=== PATIENT | female | born 1950 | race Two or more races ===

== ENCOUNTER 2016-11-03 09:57 | Inpatient (IN) | payer MEDICAID ==
--- NOTE | 2016-11-03 10:19 | EDPHY ---
H & P Time Seen by Provider: 11/03/16 10:12 HPI/ROS: CHIEF COMPLAINT: Abdominal pain HISTORY OF PRESENT ILLNESS: Patient started having symptoms at 5:00 a.m. today. Describes abdominal pain in the epigastric area radiating to both sides not affected by drinking hot water which was the only thing she had today. Not better worse with oral intake. Moderate pain. No known vomiting or nausea or diarrhea. Denies chest pain or shortness of breath. No recent fall injury or trauma. REVIEW OF SYSTEMS: Eye: no change in vision ENT: no sore throat Cardiac: no chest pain or syncope Pulmonary: no cough or SOB Abdomen: HPI Musculoskeletal: no back pain Skin: no rash Neuro: no headache Constitutional: no fever : no urinary symptoms A comprehensive 10 point review of systems is otherwise negative aside from elements mentioned in the history of present illness. PAST MEDICAL HISTORY: No previous abdominal surgeries, previous eye surgery Social history: no alcohol, primarily speaks Yi, history through phone air box tester, returning to [facility] on Monday. General Appearance: Alert and conversant, cooperative. Eyes: No scleral icterus. ENT, Mouth: Normal mucous membranes. Respiratory: Normal respiratory effort, breath sounds equal, lungs are clear to auscultation. Cardiovascular: Regular rate and rhythm. Gastrointestinal: Abdomen is soft and non tender. No Johnson sign, no rebound or guarding. Neurological: Alert and oriented x3. Normally conversant. Face symmetric, normal movement and sensation in all extremities. Skin: Warm and dry, no rashes. Musculoskeletal: No peripheral edema and no joint swelling. Psychiatric: Not agitated. Emergency Department course/MDM: Labs to include lipase LFTs and CBC, GI cocktail, EKG. 1220: Long discussion with the patient and through the Yi air box tester about diagnosis and need for admission, ultrasound in the room at this time. Admission for evaluation of pancreatitis. Smoking Status: Never smoked Constitutional: Initial Vital Signs Temperature (C) 36.4 C 11/03/16 10:00 Heart Rate 63 11/03/16 10:00 Respiratory Rate 16 11/03/16 10:00 Blood Pressure 153/92 H 11/03/16 10:00 O2 Sat (%) 100 11/03/16 10:00 O2 Delivery Mode Room Air Allergies/Adverse Reactions: No Known Allergies Allergy (Verified 11/03/16 10:03) Home Medications: Medication Instructions Recorded No Medications [No Meds] 1 [place] [facility] [place] Medical Decision Making - Diagnostics EKG Interpretation: 12-lead EKG interpreted by me; official reading is in trace master. My interpretation is sinus rhythm rate 63 no acute ischemic changes Imaging Results: Imaging Impressions Abdomen Ultrasound 11/03/16 12:16 Impression:1. Cholelithiasis. The gallbladder is contracted so it is impossible to evaluate the gallbladder wall. 2. Intra and extrahepatic biliary dilatation with a dilated common duct and pancreatic duct. Recommend CT to exclude pancreatic head mass and/or MRCP with MRI abdomen to evaluate for choledocholithiasis or other cause for dilated ducts. 3. No evidence for complicated pancreatitis. Differential Diagnosis: Differential diagnosis considered for abdominal pain including but not limited to pancreatitis, cholecystitis, bowel obstruction, gastritis and heart disease. Consult/Admit Bed Type: [place] [id number] for [facility] - Data Points Laboratory Results: Laboratory Results 11/03/16 11:55 11/03/16 11:25 11/03/16 11/03/16 11/03/16 11:55 11:25 11:25 WBC 9.40 10^3/uL 10^3/uL REJ (3.80-9.50) RBC 5.43 10^6/uL H 10^6/uL TNP (4.18-5.33) Hgb 13.7 g/dL g/dL TNP (12.6-16.3) Hct 41.3 % % TNP (38.0-47.0) MCV 76.1 fL L fL TNP (81.5-99.8) MCH 25.2 pg L pg TNP (27.9-34.1) MCHC 33.2 g/dL g/dL TNP (32.4-36.7) RDW 14.2 % % TNP (11.5-15.2) Plt Count 198 10^3/uL 10^3/uL TNP (150-400) MPV 12.0 fL H fL TNP (8.7-11.7) Neut % (Auto) 64.0 % % TNP (39.3-74.2) Lymph % (Auto) 27.1 % % TNP (15.0-45.0) Woods % (Auto) 6.6 % % TNP (4.5-13.0) Eos % (Auto) 1.6 % % TNP (0.6-7.6) Baso % (Auto) 0.3 % % TNP (0.3-1.7) Nucleat RBC Rel Count 0.0 % % TNP (0.0-0.2) Absolute Neuts (auto) 6.01 10^3/uL 10^3/uL TNP (1.70-6.50) Absolute Lymphs (auto) 2.55 10^3/uL 10^3/uL TNP (1.00-3.00) Absolute Monos (auto) 0.62 10^3/uL 10^3/uL TNP (0.30-0.80) Absolute Eos (auto) 0.15 10^3/uL 10^3/uL TNP (0.03-0.40) Absolute Basos (auto) 0.03 10^3/uL 10^3/uL TNP (0.02-0.10) Absolute Nucleated RBC 0.00 10^3/uL 10^3/uL TNP (0-0.01) Immature Gran % 0.4 % % TNP (0.0-1.1) Immature Gran # 0.04 10^3/uL 10^3/uL TNP (0.00-0.10) Sodium 139 mEq/L mEq/L (134-144) Potassium 4.7 mEq/L mEq/L (3.5-5.2) Chloride 109 mEq/L mEq/L (97-110) Carbon Dioxide 22 mEq/l mEq/l (22-31) Anion Gap 8 mEq/L mEq/L (8-16) BUN 15 mg/dL mg/dL (7-23) Creatinine 0.7 mg/dL mg/dL (0.6-1.0) Estimated GFR > 60 Glucose 84 mg/dL mg/dL (70-100) Calcium 9.8 mg/dL mg/dL (8.5-10.4) Total Bilirubin 1.7 mg/dL H mg/dL (0.1-1.4) Conjugated Bilirubin 1.1 mg/dL H mg/dL (0.0-0.5) Unconjugated Bilirubin 0.6 mg/dL mg/dL (0.0-1.1) AST 416 IU/L H IU/L (14-46) ALT 297 IU/L H IU/L (9-52) Alkaline Phosphatase 102 IU/L IU/L (38-126) Total Protein 8.0 g/dL g/dL (6.3-8.2) Albumin 4.5 g/dL g/dL (3.5-5.0) Lipase 1302.0 IU/L H IU/L (23-300) Medications Given: Discontinued Medications Al Hydroxide/Mg Hydroxide (Maalox Susp) 30 ml PO ONCE ONE Stop: 11/03/16 10:29 Last Admin: 11/03/16 10:40 Dose: 30 ml Hydromorphone HCl (Dilaudid) 0.5 mg IVP EDNOW ONE Stop: 11/03/16 13:20 Last Admin: 11/03/16 13:25 Dose: 0.5 mg Hyoscyamine Sulfate (Levsin, Hyomax-Sl) 0.25 mg PO ONCE ONE Stop: 11/03/16 10:29 Last Admin: 11/03/16 10:40 Dose: 0.25 mg Sodium Chloride (Ns) 1,000 mls @ 0 mls/hr IV ONCE ONE PRN Reason: Wide Open Stop: 11/03/16 10:29 Last Admin: 11/03/16 10:40 Dose: 1,000 mls Sodium Chloride (Ns) 1,000 mls @ 0 mls/hr IV ONCE ONE PRN Reason: Wide Open Stop: 11/03/16 12:16 Last Admin: 11/03/16 12:48 Dose: 1,000 mls Lidocaine (Lidocaine 2% Viscous) 15 ml PO ONCE ONE Stop: 11/03/16 10:29 Last Admin: 11/03/16 10:40 Dose: 15 ml Departure - Departure Disposition: [facility] Inpatient Acute Clinical Impression: Acute pancreatitis Qualifiers: Pancreatitis type: unspecified pancreatitis type Acute pancreatitis complication: unspecified Qualified Code(s): K85.90 - Acute pancreatitis without necrosis or infection, unspecified Condition: Good
[2016-11-03] MEDS ORDERED: NS 1,000 ML IV ONE ×2 (10:28→12:15)
[2016-11-03] MEDS ORDERED: MAG HYDROX/AL HYDROX/SIMETH 30 ML UDCUP PO ONE (10:28)
[2016-11-03] MEDS ORDERED: LIDOCAINE 2% VISCOUS 15 ML UDCUP PO ONE (10:28)
[2016-11-03] MEDS ORDERED: HYOSCYAMINE SULFATE 0.125 MG TAB PO ONE (10:28)
--- NOTE | 2016-11-03 10:37 | CPEKG ---
Heart Rate: 63 RR Interval: 952 P-R Interval: 136 QRSD Interval: 78 QT Interval: 396 QTC Interval: 406 P Canyon: 63 QRS Canyon: 55 T Wave Canyon: 30 EKG Severity - NORMAL ECG - EKG Impression: SINUS RHYTHM Electronically Signed By: Rudi Campbell 03-Nov-2016 11:40:12
[2016-11-03 12:04] LABS: ALANINE AMINOTRANSFERASE 297 IU/L (9-52); ALBUMIN 4.5 g/dL (3.5-5.0); ALKALINE PHOSPHATASE 102 IU/L (38-126); ANION GAP 8 mEq/L (8-16); ASPARTATE AMINOTRANSFERASE 416 IU/L (14-46); BILIRUBIN,TOTAL 1.7 mg/dL (0.1-1.4); BILIRUBIN-CONJUGATED 1.1 mg/dL (0.0-0.5); BILIRUBIN-UNCONJUGATED 0.6 mg/dL (0.0-1.1); CALCIUM 9.8 mg/dL (8.5-10.4); CARBON DIOXIDE 22 mEq/l (22-31); CHLORIDE 109 mEq/L (97-110); CREATININE 0.7 mg/dL (0.6-1.0); GLOMERULAR FILTRATION RATE > 60; GLUCOSE 84 mg/dL (70-100); POTASSIUM 4.7 mEq/L (3.5-5.2); SODIUM 139 mEq/L (134-144)
[2016-11-03 12:15] LABS: % IMMATURE GRANULYOCYTES 0.4 % (0.0-1.1); ABSOLUTE IMMATURE GRANULOCYTES 0.04 10^3/uL (0.00-0.10); ADD DIFF? NO; ADD MORPH? NO; ADD SCAN? NO; ATYPICAL LYMPHOCYTE FLAG 0 (0-99); FRAGMENT RBC FLAG 10 (0-99); HEMATOCRIT 41.3 % (38.0-47.0); HEMOGLOBIN 13.7 g/dL (12.6-16.3); LEFT SHIFT FLG 0 (0-99); LIPEMIA HEMOLYSIS FLAG 80 (0-99); MEAN CELL HEMOGLOBIN 25.2 pg (27.9-34.1); MEAN CELL HEMOGLOBIN CONCENTR. 33.2 g/dL (32.4-36.7); MEAN CELL VOLUME 76.1 fL (81.5-99.8); PLATELET CLUMPS FLAG 10 (0-99); PLATELET COUNT 198 10^3/uL (150-400); RED BLOOD CELL COUNT 5.43 10^6/uL (4.18-5.33); RED CELL DISTRIBUTION WIDTH 14.2 % (11.5-15.2)
[2016-11-03] MEDS ORDERED: HYDROmorphONE/DILAUDID 1 MG/ML SYR ONE (13:17)
[2016-11-03] MEDS ORDERED: HYDROmorphONE/DILAUDID 1 MG/ML SYR IVP ONE (13:19)
[2016-11-03] MEDS ORDERED: ONDANSETRON DISINTEGRATING 4 MG TAB PO PRN (13:38)
[2016-11-03] MEDS ORDERED: PROMETHAZINE HCL 25 MG TAB PO PRN (13:38)
[2016-11-03] MEDS ORDERED: HYDROmorphONE/DILAUDID 1 MG/ML SYR IVP PRN (13:38)
[2016-11-03] MEDS ORDERED: ONDANSETRON 4 MG/2 ML VIAL IVP PRN (13:38)
[2016-11-03] MEDS ORDERED: NICOTINE POLACRILEX 2 MG GUM B PRN (13:38)
--- NOTE | 2016-11-03 13:43 | PDGENHP ---
History and Physical - Chief Complaint Acute abdominal pain - History of Present Illness PCP: None HPI: 66-year-old female presents with acute abdominal pain located in the epigastric area, characterized as radiating bilaterally onset at 5:00 a.m. and duration persistent thereafter. Per patient report, she had otherwise been feeling well on the evening prior to this presentation. She denies any regular discomfort with oral intake of foods prior to this onset. She has had associated anorexia but has not been having any vomiting or diarrhea. Her last bowel movement was on the day prior to this presentation. She has not been drinking alcohol recently. She attempted to drink water to alleviate the symptoms today to no affect. She has received pain medication in the emergency department and this has somewhat alleviated her pain. History Information - Allergies/Home Medication List Allergies/Adverse Reactions: No Known Allergies Allergy (Verified 11/03/16 10:03) Home Medications: No Medications [No Meds] 1 ea [facility] [place] 07/02/12 [Last Taken Unknown] I have personally reviewed and updated: family history, medical history, social history, surgical history - Past Medical History no pertinent PMH Additional medical history: Outside records reviewed including 07/02/2012 emergency department report by Clarissa Garcia, characterizing patient's only recent medical care as suspected URI - Surgical History Additional surgical history: Cataract surgery - Family History Additional family history: No family history of GI malignancy - Social History Smoking Status: Current some day smoker Alcohol Use: Occasionally (Not heavy use per ) Drug Use: None Additional social history: Patient is returning to [facility] next week Review of Systems ROS: 10pt was reviewed & negative except for what was stated in HPI & below Gastrointestinal: Reports: abdominal pain, other (Anorexia) Physical Exam Temp Pulse Resp BP Pulse Ox 36.9 C 74 15 145/89 H 96 11/03/16 13:24 11/03/16 13:24 11/03/16 13:24 11/03/16 13:24 11/03/16 13:24 Constitutional: no apparent distress (Mild amount of distress), uncomfortable, No not in pain (Patient is in pain) Eyes: PERRL, anicteric sclera, EOMI Ears, Nose, Mouth, Throat: moist mucous membranes, hearing normal, ears appear normal, no oral mucosal ulcers Cardiovascular: regular rate and rhythym, no murmur, rub, or gallop, No edema Respiratory: no respiratory distress, no rales or rhonchi, clear to auscultation Gastrointestinal: normoactive bowel sounds, tenderness (Mid epigastric area as well as right upper quadrant), No guarding, No distension Skin: warm, normal color, no rashes or abrasions, other (Not visibly jaundiced) , No mottled Neurologic: AAOx3, No facial droop Psychiatric: interacting appropriately, not anxious, not encephalopathic, thought process linear, other (Although per she is somewhat out of it) Lab Data & Imaging Review 11/03/16 11:55 11/03/16 11:25 WBC 9.40 10^3/uL (3.80-9.50) 11/03/16 11:55 RBC 5.43 10^6/uL (4.18-5.33) H 11/03/16 11:55 Hgb 13.7 g/dL (12.6-16.3) 11/03/16 11:55 Hct 41.3 % (38.0-47.0) 11/03/16 11:55 MCV 76.1 fL (81.5-99.8) L 11/03/16 11:55 MCH 25.2 pg (27.9-34.1) L 11/03/16 11:55 MCHC 33.2 g/dL (32.4-36.7) 11/03/16 11:55 RDW 14.2 % (11.5-15.2) 11/03/16 11:55 Plt Count 198 10^3/uL (150-400) 11/03/16 11:55 MPV 12.0 fL (8.7-11.7) H 11/03/16 11:55 Neut % (Auto) 64.0 % (39.3-74.2) 11/03/16 11:55 Lymph % (Auto) 27.1 % (15.0-45.0) 11/03/16 11:55 [place] % (Auto) 6.6 % (4.5-13.0) 11/03/16 11:55 Eos % (Auto) 1.6 % (0.6-7.6) 11/03/16 11:55 Baso % (Auto) 0.3 % (0.3-1.7) 11/03/16 11:55 Nucleat RBC Rel Count 0.0 % (0.0-0.2) 11/03/16 11:55 Absolute Neuts (auto) 6.01 10^3/uL (1.70-6.50) 11/03/16 11:55 Absolute Lymphs (auto) 2.55 10^3/uL (1.00-3.00) 11/03/16 11:55 Absolute Monos (auto) 0.62 10^3/uL (0.30-0.80) 11/03/16 11:55 Absolute Eos (auto) 0.15 10^3/uL (0.03-0.40) 11/03/16 11:55 Absolute Basos (auto) 0.03 10^3/uL (0.02-0.10) 11/03/16 11:55 Absolute Nucleated RBC 0.00 10^3/uL (0-0.01) 11/03/16 11:55 Immature Gran % 0.4 % (0.0-1.1) 11/03/16 11:55 Immature Gran # 0.04 10^3/uL (0.00-0.10) 11/03/16 11:55 Sodium 139 mEq/L (134-144) 11/03/16 11:25 Potassium 4.7 mEq/L (3.5-5.2) 11/03/16 11:25 Chloride 109 mEq/L (97-110) 11/03/16 11:25 Carbon Dioxide 22 mEq/l (22-31) 11/03/16 11:25 Anion Gap 8 mEq/L (8-16) 11/03/16 11:25 BUN 15 mg/dL (7-23) 11/03/16 11:25 Creatinine 0.7 mg/dL (0.6-1.0) 11/03/16 11:25 Estimated GFR > 60 11/03/16 11:25 Glucose 84 mg/dL (70-100) 11/03/16 11:25 Calcium 9.8 mg/dL (8.5-10.4) 11/03/16 11:25 Total Bilirubin 1.7 mg/dL (0.1-1.4) H 11/03/16 11:25 Conjugated Bilirubin 1.1 mg/dL (0.0-0.5) H 11/03/16 11:25 Unconjugated Bilirubin 0.6 mg/dL (0.0-1.1) 11/03/16 11:25 AST 416 IU/L (14-46) H 11/03/16 11:25 ALT 297 IU/L (9-52) H 11/03/16 11:25 Alkaline Phosphatase 102 IU/L (38-126) 11/03/16 11:25 Total Protein 8.0 g/dL (6.3-8.2) 11/03/16 11:25 Albumin 4.5 g/dL (3.5-5.0) 11/03/16 11:25 Lipase 1302.0 IU/L (23-300) H 11/03/16 11:25 Visualized and Interpreted EKG results: Yes EKG Interpretation: Positive for: other (Normal sinus rhythm) Assessment & Plan Assessment: 66-year-old female presents with acute abdominal pain secondary to acute pancreatitis with transaminitis Plan: 1. Pancreatitis. Acute, new from this provider, further workup indicated. Evidenced by lipase level of 1300, midepigastric tenderness, complicated by transaminitis. -unclear etiology, suspect this is not alcohol induced as the patient does not have regular or excessive use of alcohol per her -given her transaminitis, I suspect there may be a gallstone component -right upper quadrant ultrasound ordered, if equivocal findings or evidence of gallstones without overt obstruction, will order HIDA scan -will hold on ordering autoimmune pancreatitis labs until the above has been further evaluated -NPO with sips and chips, high rate IV fluids, IV pain medications -begin cycling on oral pain medications when patient is amenable to taking p.o. 2. Transaminitis. Acute, most likely related to above, suspect gallstone component, continue to monitor complete metabolic panel and further workup as outlined above 3. Tobacco use disorder. Patient's reports that she smokes several cigarettes daily, nicotine patch ordered Diet. NPO with sips and chips Prophylaxis. Moderate risk patient, Lovenox for Code. Full Disposition. Anticipated discharge is 11/04/2016, pending clinical resolution of conditions as outlined above. If patient continues to experience clinical symptoms of acute pancreatitis rendering her unable to tolerate oral intake and unsafe to advance diet, then she will require ongoing IV fluids and IV pain medications thus necessitating inpatient admission status and she will be upgraded at that time. I have discussed this patient with Argenis Henley, hospitalist provider, she has signed out the patient to me for assessment.
[2016-11-03] MEDS: NS 1,000 ML IV SCH ×2 (15:34→20:08)
[2016-11-03] MEDS: HYDROmorphONE/DILAUDID 2 MG TAB PO PRN (15:34)
[2016-11-03] MEDS: NICOTINE 14 MG/24 HR PATCH TD SCH (15:42)
[2016-11-03] MEDS ORDERED: PNEUMOC 13-VAL CONJ-DIP CRM/PF 0.5 ML SYR IM ONE (17:52)
[2016-11-03] MEDS ORDERED: GADOBUTROL 10 ML VIAL IVP ONE (19:54)
[2016-11-04] MEDS: NS 1,000 ML IV SCH ×2 (03:10→08:32)
[2016-11-04 05:50] LABS: % IMMATURE GRANULYOCYTES 0.4 % (0.0-1.1); ABSOLUTE IMMATURE GRANULOCYTES 0.03 10^3/uL (0.00-0.10); ADD DIFF? NO; ADD MORPH? NO; ADD SCAN? NO; ATYPICAL LYMPHOCYTE FLAG 0 (0-99); FRAGMENT RBC FLAG 0 (0-99); HEMATOCRIT 36.2 % (38.0-47.0); HEMOGLOBIN 11.8 g/dL (12.6-16.3); LEFT SHIFT FLG 0 (0-99); LIPEMIA HEMOLYSIS FLAG 80 (0-99); MEAN CELL HEMOGLOBIN 25.1 pg (27.9-34.1); MEAN CELL HEMOGLOBIN CONCENTR. 32.6 g/dL (32.4-36.7); MEAN PLATELET VOLUME 12.7 fL (8.7-11.7); PLATELET CLUMPS FLAG 0 (0-99); PLATELET COUNT 167 10^3/uL (150-400); RED CELL DISTRIBUTION WIDTH 14.2 % (11.5-15.2)
[2016-11-04 06:08] LABS: ALANINE AMINOTRANSFERASE 325 IU/L (9-52); ALKALINE PHOSPHATASE 118 IU/L (38-126); ANION GAP 7 mEq/L (8-16); ASPARTATE AMINOTRANSFERASE 235 IU/L (14-46); BILIRUBIN,TOTAL 1.5 mg/dL (0.1-1.4); CALCIUM 8.1 mg/dL (8.5-10.4); CARBON DIOXIDE 18 mEq/l (22-31); CHLORIDE 118 mEq/L (97-110); CREATININE 0.7 mg/dL (0.6-1.0); GLOMERULAR FILTRATION RATE > 60; GLUCOSE 62 mg/dL (70-100); POTASSIUM 4.1 mEq/L (3.5-5.2); SODIUM 143 mEq/L (134-144); TOTAL PROTEIN 5.6 g/dL (6.3-8.2)
[2016-11-04] MEDS: NICOTINE 14 MG/24 HR PATCH TD SCH (11:41)
[2016-11-04] MEDS: ENOXAPARIN 40 MG/0.4 ML SYR SC SCH (11:45)
--- NOTE | 2016-11-04 13:19 | GCON ---
[f rep st] CONSULTATION GI CONSULTATION. DATE OF CONSULTATION: 11/04/2016 REASON FOR CONSULTATION: Choledocholithiasis and bile duct obstruction. HISTORY OF PRESENT ILLNESS: The patient is a 66-year-old female who was admitted to the hospital last night after acute onset of epigastric abdominal pain with bilateral radiation to the right and left back. She was noted in the ER on ultrasound to have cholelithiasis, a dilated common bile duct and choledocholithiasis. MRCP also revealed cholelithiasis within a non-distended gallbladder, with thickened gallbladder wall consistent with chronic cholecystitis, an enlarged common bile duct with mild intrahepatic biliary dilatation and common bile duct stones. The patient is without complaints today , lying in bed sleeping but easily arousable. She has had no prior attack of this pain. MEDICATIONS: No medications prior to admission. ALLERGIES: None. PAST MEDICAL HISTORY: Unremarkable. PAST SURGICAL HISTORY: Significant for cataract surgery bilaterally. FAMILY HISTORY: Negative for GI malignancies or gallbladder disease. SOCIAL HISTORY: She lives with her in [place], she was born in [facility]. She smokes an occasional cigarette, has done so for years. She occasionally drinks alcohol but not to excess. REVIEW OF SYSTEMS: Negative for a comprehensive review of systems. PHYSICAL EXAMINATION: GENERAL: A well-developed, well-nourished female in no apparent distress, lying in bed. VITALS: Temperature 36.6 Celsius, pulse 84, regular, blood pressure 101/53, respiratory rate 20, O2 saturation 93% on room air. INTEGUMENT: Clear. HEENT: Head atraumatic, normocephalic. Pupils equal , round, reactive to light, EOM's intact. Sclerae nonicteric. Nares patent. Mucous membranes moist. NECK: Supple, trachea midline. LYMPHATICS: No cervical or axillary adenopathy. PULMONARY: Lungs clear to percussion and auscultation. CARDIOVASCULAR: Regular rhythm and rate, normal S1 and S2 without murmur. Peripheral pulses strong bilaterally, no pedal edema. GASTROINTESTINAL: Abdomen supple, positive bowel sounds. No liver or spleen tip palpable. There is mild tenderness in the midepigastrium and right upper quadrant to deep palpation without palpable mass or rebound. EXTREMITIES: Without deformity. NEUROLOGIC: Patient is alert and oriented x3, no focal neurologic deficits. LABORATORY DATA: White count 8.14, hemoglobin 11.8, hematocrit 36.2, platelets 164,000, sodium 143. Potassium 4.1, CO2 of 18, chloride 118, anion gap of 7, BUN 11, creatinine 0.7. Total bilirubin 1.5. AST on admission 416, AST today 235, ALT on admission 297, ALT today 325. Alkaline phosphatase 118, lipase on admission 1302. MRCP yesterday revealed cholelithiasis, nondistended gallbladder with thickened gallbladder wall consistent with chronic cholecystitis, common bile duct stones and mild intra extrahepatic biliary dilatation. Subtle pancreatitis in the tail of the pancreas, and a 1 cm nonspecific lesion in the superior pole of the left kidney. IMPRESSION: Symptomatic choledocholithiasis, with probable chronic cholecystitis. RECOMMENDATIONS: 1. ERCP today for papillotomy and clearance of common bile duct stone. 2. Would recommend surgical consultation for consideration of elective cholecystectomy either during this admission or as an outpatient. /[id number]/MODL MTDD
[2016-11-04] MEDS ORDERED: levOFLOXACIN 500 MG/DEXTROSE 100 ML IV ONE (15:58)
[2016-11-04] MEDS ORDERED: GLUCAGON,HUMAN RECOMBINANT 1 MG VIAL ONE (16:07)
[2016-11-04] MEDS ORDERED: IOTHALAMATE MEG (CONRAY) 50 ML VIAL IV ONE (16:07)
[2016-11-04] MEDS ORDERED: fentaNYL 100 MCG/2 ML INJ ONE (16:09)
[2016-11-04] MEDS ORDERED: PROPOFOL 200 MG/20 ML VIAL ONE (16:09)
[2016-11-04] MEDS ORDERED: ROCURONIUM 50 MG/5 ML VIAL ONE (16:09)
[2016-11-04] MEDS ORDERED: MIDAZOLAM 2 MG/2 ML VIAL ONE (16:14)
[2016-11-04] MEDS ORDERED: INDOMETHACIN 50 MG SUPP PR ONE ×2 (17:16→17:30)
[2016-11-04] MEDS ORDERED: SUGAMMADEX SODIUM 200 MG/2 ML VIAL IVP ONE (18:19)
[2016-11-04] MEDS ORDERED: ONDANSETRON 4 MG/2 ML VIAL ONE (18:19)
--- NOTE | 2016-11-04 18:43 | HOSPPROG ---
Hospitalist Progress Note Assessment/Plan: Assessment: 66-year-old female presents with acute abdominal pain secondary to acute gallstone pancreatitis Plan: 1. Gallstone Pancreatitis. Acute, evidenced by lipase level of 1300, midepigastric tenderness, MRCP w/ panc tail inflammation, choledochal stones, increased CBG -d/w Dr. Guidry, Dr. Choudhury will perform ERCP today to remove stone -d/w Dr. Peterson, ideally this patient should have a CCY in short-term to reduce risk of recurrence, as well as for what appears to chronic cholecystitis on MRCP -d/w patient and family, she will accept the risk and decline surgery at this time, choosing to schedule elective CCY with Dr. Rashid as outpt upon her return from [facility] (leaves on 11/07, returning last week of December) -if she experiences recurrence of symptoms while in [facility], she has been advised to seek immediate medical care for likely CCY/pancreatitis -NPO with sips and chips, high rate IV fluids, IV pain medications -begin cycling on oral pain medications when patient is amenable to taking p.o. -plan to advance diet as tolerates in AM 2. Transaminitis. Acute, most likely related to above, suspect gallstone component, continue to monitor complete metabolic panel and further workup as outlined above 3. Tobacco use disorder. Patient's reports that she smokes several cigarettes daily, nicotine patch ordered Diet. NPO with sips and chips Prophylaxis. Moderate risk patient, SCDs s/p ERCP Code. Full Dispo. Anticipated discharge is 11/05, anticipated length stay is greater than 48 hours warranting inpatient admission status for reasonable medical necessity including ongoing acute gallstone pancreatitis requiring ongoing IV fluids, IV pain medications, ERCP, slow advancement of diet to prevent recurrence of symptoms. Subjective: Patient reports some ongoing mid epigastric pain, she would like to decline cholecystectomy at this time, counseled patient and family extensively regarding surgical plan and potential for complications if the patient does not pursue surgery in the short term Objective: Vital Signs Temp Pulse Resp BP Pulse Ox 36.6 C 84 20 101/53 L 93 11/04/16 08:13 11/04/16 08:13 11/04/16 08:13 11/04/16 08:13 11/04/16 08:13 Laboratory Results 11/04/16 04:28 11/04/16 04:28 11/03/16 11/04/16 11/05/16 05:59 05:59 05:59 Intake Total 4249 1600 Output Total 700 500 Balance 3546 1100 - Time Spent With Patient Time Spent with Patient: greater than 35 minutes Time Spent with Patient: Greater than 35 minutes spent on this patients care, greater than 50% of time spent counseling, educating, and coordinating care regarding the above mentioned plan. - Physical Exam Constitutional: no apparent distress, uncomfortable Cardiovascular: regular rate and rhythym, no murmur, rub, or gallop Respiratory: no respiratory distress, no rales or rhonchi, clear to auscultation Gastrointestinal: tenderness (Mid epigastric to moderate palpation), No normoactive bowel sounds (Hypoactive bowel sounds), No guarding, No distension Psychiatric: interacting appropriately, not anxious, not encephalopathic, thought process linear ICD10 Worksheet Patient Problems: Problems Problem Status Onset Acute pancreatitis Acute
--- NOTE | 2016-11-04 18:49 | POSTOPPROG ---
Post Op Note Date of Operation: 11/04/16 Surgeon: Michael Choudhury Pre-op Diagnosis: Choledocholithiasis Post-op Diagnosis: Same, s/p stone removal from CBD Indication: Gallstone pancreatitis Procedure: ERCP with biliary sphincterotomy and stone removal Findings: Dilated CBD. Impacted CBD stones s/p removal. No remaining stones. Inf/Abcess present in the surg proc area at time of surgery?: No EBL: Minimal Complications: None
--- NOTE | 2016-11-04 19:20 | GOP ---
[f rep st] OPERATIVE REPORT DATE OF OPERATION: SURGEON: Michael Choudhury MD ANESTHESIA: General. PREOPERATIVE DIAGNOSIS: Chronic cholecystitis and common bile duct stones. POSTOPERATIVE DIAGNOSIS: Dilated common bile duct and common bile duct stones, status post removal. PROCEDURE PERFORMED: Endoscopic retrograde cholangiopancreatography with biliary sphincterotomy, and stone removal. MEDICATIONS: Levaquin 500 mg given before the procedure. Indomethacin 100 mg rectally given during the procedure. INDICATIONS: The patient is a 66-year-old female who presents with gallstone pancreatitis and was found to have gallstones on imaging within her common bile duct. She is here for ERCP and stone removal. The risks and benefits of the procedure were discussed the patient and consent obtained. The risks include bleeding, perforation, risks associated with sedation, and pancreatitis. DESCRIPTION OF PROCEDURE: It was initially difficult to get the duodenoscope into her esophagus. Therefore, I switched to an upper endoscope which was inserted into the 2nd portion of the duodenum. The esophagus, stomach appeared normal. Duodenitis was seen. I then inserted a Savary guidewire and inserted the duodenoscope adjacent to the guidewire to gain access to esophagus, stomach , and duodenum. The ampulla appeared bulging. The appearance was suggestive of an impacted stone. There was duodenitis with small ulcerations in the duodenum. Next, multiple attempts to initially cannulate the bile duct were unsuccessful. The pancreatic duct was injected with contrast and cannulated with a guidewire. The pancreatic duct appeared normal. Secondary to impacted stones, I could not gain access to the bile duct. Therefore, I switched to a needle knife, and dissected the ampulla down to the bile duct. Bile flow was seen. Next, the Hydratome catheter was used to insert the guidewire into the intrahepatic biliary tree to secure position. The Hydratome catheter was then inserted into the bile duct. Contrast dye was injected. There were multiple distal impacted stones. Next, the biliary sphincterotomy was extended. Multiple balloon sweeps using the 9 and 12 mm stone extraction balloon yielded sludge but the large stones remained within the duct. Therefore, a 10 mm x 4 cm hurricane balloon was used to dilate the distal bile duct. The 9 and 12 mm stone extraction balloon was then reinserted and multiple sweeps resulted in complete removal of stones. A final occlusion cholangiogram negative for retained stones. IMPRESSION: 1. Duodenitis with duodenal superficial erosions. 2. Impacted distal bile duct stones, status post precut access needle knife sphincterotomy and extension of biliary sphincterotomy once the biliary access was obtained. All stones were removed. RECOMMENDATIONS: 1. Pantoprazole 40 mg IV twice daily while in the hospital secondary to duodenitis. She can be discharged on 40 mg of omeprazole orally daily for 2 months. 2. Clear liquid diet okay this evening. 3. We will follow along. Thank you for allowing me to partake in the care your patient. 4. Eventually she will need to have her gallbladder removed, although she has declined surgical consultation during this admission. /[id number]/MODL MTDD
[2016-11-04] MEDS: PANTOPRAZOLE SODIUM 40 MG in NS 100 ML IV SCH (21:31)
[2016-11-04 21:49] VITALS: RESP 16
[2016-11-05] MEDS: HYDROmorphONE/DILAUDID 2 MG TAB PO PRN ×3 (01:08→09:56)
[2016-11-05 05:14] LABS: % IMMATURE GRANULYOCYTES 0.5 % (0.0-1.1); ABSOLUTE IMMATURE GRANULOCYTES 0.06 10^3/uL (0.00-0.10); ADD DIFF? NO; ADD MORPH? NO; ADD SCAN? NO; ATYPICAL LYMPHOCYTE FLAG 0 (0-99); FRAGMENT RBC FLAG 0 (0-99); HEMOGLOBIN 11.5 g/dL (12.6-16.3); LEFT SHIFT FLG 0 (0-99); LIPEMIA HEMOLYSIS FLAG 80 (0-99); MEAN CELL HEMOGLOBIN 25.1 pg (27.9-34.1); MEAN CELL HEMOGLOBIN CONCENTR. 32.9 g/dL (32.4-36.7); MEAN CELL VOLUME 76.3 fL (81.5-99.8); MEAN PLATELET VOLUME 12.6 fL (8.7-11.7); PLATELET CLUMPS FLAG 0 (0-99); PLATELET COUNT 165 10^3/uL (150-400); RED BLOOD CELL COUNT 4.59 10^6/uL (4.18-5.33); RED CELL DISTRIBUTION WIDTH 14.1 % (11.5-15.2)
[2016-11-05 05:26] LABS: ALANINE AMINOTRANSFERASE 316 IU/L (9-52); ALBUMIN 3.2 g/dL (3.5-5.0); ALKALINE PHOSPHATASE 161 IU/L (38-126); ANION GAP 11 mEq/L (8-16); ASPARTATE AMINOTRANSFERASE 194 IU/L (14-46); BILIRUBIN,TOTAL 2.5 mg/dL (0.1-1.4); CALCIUM 8.7 mg/dL (8.5-10.4); CARBON DIOXIDE 15 mEq/l (22-31); CHLORIDE 114 mEq/L (97-110); CREATININE 0.7 mg/dL (0.6-1.0); GLOMERULAR FILTRATION RATE > 60; GLUCOSE 88 mg/dL (70-100); POTASSIUM 4.3 mEq/L (3.5-5.2); SODIUM 140 mEq/L (134-144); TOTAL PROTEIN 5.9 g/dL (6.3-8.2)
[2016-11-05 05:33] LABS: BILIRUBIN-CONJUGATED 1.9 mg/dL (0.0-0.5); BILIRUBIN-UNCONJUGATED 0.6 mg/dL (0.0-1.1)
[2016-11-05] MEDS: NS 1,000 ML IV SCH (06:10)
[2016-11-05 08:44] VITALS: BP 125/67; PULSE 69; TEMP 98.4; O2SAT 96
[2016-11-05] MEDS: PANTOPRAZOLE SODIUM 40 MG in NS 100 ML IV SCH (08:52)
[2016-11-05] MEDS: NICOTINE 14 MG/24 HR PATCH TD SCH (08:54)
--- NOTE | 2016-11-05 10:37 | SOAPPROG ---
SOAP Progress Note Assessment/Plan: Assessment: Choledocholithiasis s/p ERCP with stone extraction. Patient is doing well with no significant pain post ERCP. Plan: 1. Ok for discharge home if eating PO and no significant abdominal pain. 2. I do not anticipate that she will need pain Meds on discharge. Can take Tylenol PRN. 3. Patient will be traveling back to [facility] this week, but will return in six weeks. Would recommend surgical referral for elective cholecystectomy. 4. Will sign off, please call with further questions 11/05/16 10:34 Subjective: CC: Abdominal pain, choledocholithiasis Patient without significant abdominal pain. Tolerating PO Objective: Vital Signs Temp Pulse Resp BP Pulse Ox 36.9 C 69 16 125/67 H 96 11/05/16 08:00 11/05/16 08:00 11/05/16 08:00 11/05/16 08:00 11/05/16 08:00 Laboratory Results 11/05/16 04:30 11/05/16 04:30 11/04/16 11/05/16 11/06/16 05:59 05:59 05:59 Intake Total 1000 Balance 1000 Generic Name Dose Route Start Last Admin Trade Name Freq PRN Reason Stop Dose Admin Enoxaparin Sodium 40 mg 11/04/16 09:00 11/04/16 11:45 Lovenox SC 05/03/17 08:59 40 mg DAILY PANCHITO Administration Hydromorphone HCl 0.2 - 1 mg 11/03/16 13:38 11/04/16 21:30 Dilaudid IVP 11/13/16 13:37 0.5 mg Q2 PRN Administration Pain, Severe Unable to Take PO Hydromorphone HCl 2 mg 11/03/16 13:38 11/05/16 09:56 Dilaudid PO 11/13/16 13:37 2 mg Q4HRS PRN Administration Pain, Severe Able to Take PO Sodium Chloride 1,000 mls @ 200 mls/hr 11/03/16 13:45 11/05/16 06:10 Ns IV 05/02/17 13:44 1,000 mls CONT PANCHITO Administration Pantoprazole Sodium 40 mg/ 100 mls @ 200 mls/hr 11/04/16 21:00 11/05/16 08:52 Sodium Chloride IV 05/03/17 20:59 100 mls BID PANCHITO Administration Nicotine 14 mg 11/03/16 14:00 11/05/16 08:54 Nicoderm Cq TD 05/02/17 13:59 14 mg DAILY PANCHITO Administration Nicotine Polacrilex 2 mg 11/03/16 13:38 Nicorette B 05/02/17 13:37 Q1HR PRN Nicotine Withdrawal Ondansetron HCl 4 mg 11/03/16 13:38 Zofran IVP 05/02/17 13:37 Q4HRS PRN Nausea/Vomiting, Can't Take PO Ondansetron HCl 4 mg 11/03/16 13:38 11/03/16 15:34 Zofran Odt PO 05/02/17 13:37 4 mg Q4HRS PRN Administration Nausea/Vomiting, Use 1st Promethazine HCl 12.5 - 25 mg 11/03/16 13:38 Phenergan PO 05/02/17 13:37 Q6HRS PRN Nausea/Vomiting, Use 2nd Discontinued Medications Generic Name Dose Route Start Last Admin Trade Name Freq PRN Reason Stop Dose Admin Al Hydroxide/Mg Hydroxide 30 ml 11/03/16 10:28 11/03/16 10:40 Maalox Susp PO 11/03/16 10:29 30 ml ONCE ONE Administration Fentanyl Confirm 11/04/16 16:09 Sublimaze Administered 11/04/16 16:10 Dose 100 mcg .ROUTE .STK-MED ONE Gadobutrol Confirm 11/03/16 19:54 Gadavist 1 Mmol/Ml Administered 11/03/16 19:55 Dose 10 ml IVP .STK-MED ONE Glucagon Confirm 11/04/16 16:07 Glucagen Administered 11/04/16 16:08 Dose 1 mg .ROUTE .STK-MED ONE Hydromorphone HCl Confirm 11/03/16 13:17 Dilaudid Administered 11/03/16 13:18 Dose 1 mg .ROUTE .STK-MED ONE Hydromorphone HCl 0.5 mg 11/03/16 13:19 11/03/16 13:25 Dilaudid IVP 11/03/16 13:20 0.5 mg EDNOW ONE Administration Hyoscyamine Sulfate 0.25 mg 11/03/16 10:28 11/03/16 10:40 Levsin, Hyomax-Sl PO 11/03/16 10:29 0.25 mg ONCE ONE Administration Sodium Chloride 1,000 mls @ 0 mls/hr 11/03/16 10:28 11/03/16 10:40 Ns IV 11/03/16 10:29 1,000 mls ONCE ONE Administration Wide Open Sodium Chloride 1,000 mls @ 0 mls/hr 11/03/16 12:15 11/03/16 12:48 Ns IV 11/03/16 12:16 1,000 mls ONCE ONE Administration Wide Open Levofloxacin/Dextrose 100 mls @ 100 mls/hr 11/04/16 15:58 11/04/16 19:30 Levaquin 500 Mg (Premix) IV 11/04/16 16:57 Not Given ONCE ONE Protocol Indomethacin Confirm 11/04/16 17:16 Indocin Rectal Administered 11/04/16 17:17 Dose 100 mg UT .STK-MED ONE Indomethacin 100 mg 11/04/16 17:30 11/04/16 19:49 Indocin Rectal UT 11/04/16 17:31 Not Given ONCALL ONE Iothalamate Meglumine Confirm 11/04/16 16:07 [place]ray Administered 11/04/16 16:08 Dose 50 ml IV .STK-MED ONE Lidocaine 15 ml 11/03/16 10:28 11/03/16 10:40 Lidocaine 2% Viscous PO 11/03/16 10:29 15 ml ONCE ONE Administration Midazolam HCl Confirm 11/04/16 16:14 Versed Administered 11/04/16 16:15 Dose 2 mg .ROUTE .STK-MED ONE Ondansetron HCl Confirm 11/04/16 18:19 Zofran Administered 11/04/16 18:20 Dose 4 mg .ROUTE .STK-MED ONE Pneumococcal 13-Valent Conj Vacc 0.5 ml 11/03/16 17:52 11/03/16 18:29 Prevnar 13 Syringe IM 11/03/16 17:53 0.5 ml .ONCE ONE Administration Propofol Confirm 11/04/16 16:09 Diprivan Administered 11/04/16 16:10 Dose 200 mg .ROUTE .STK-MED ONE Rocuronium [place] Confirm 11/04/16 16:09 Zemuron Administered 11/04/16 16:10 Dose 50 mg .ROUTE .STK-MED ONE Sugammadex Sodium Confirm 11/04/16 18:19 Bridion Administered 11/04/16 18:20 Dose 200 mg IVP .STK-MED ONE Physical Exam - Physical Exam General Appearance: alert, no apparent distress Respiratory: lungs clear, normal breath sounds Cardiac/Chest: regular rate, rhythm Abdomen: normal bowel sounds, non-tender, soft Skin: normal color, warm/dry Extremities: non-tender Neuro/Psych: alert, normal mood/affect ICD10 Worksheet Patient Problems: Problems Problem Status Onset Acute pancreatitis Acute
--- NOTE | 2016-11-05 11:47 | HOSPPROG ---
Hospitalist Progress Note Assessment/Plan: 66 yo F w choledocholithiasis s/p ercp 5 days levoflox > 30 minutes on dc Subjective: [ain and lft's improved. case and discharge discussed via intrpreter phone Objective: Vital Signs Temp Pulse Resp BP Pulse Ox 36.9 C 69 16 125/67 H 96 11/05/16 08:00 11/05/16 08:00 11/05/16 08:00 11/05/16 08:00 11/05/16 08:00 Laboratory Results 11/05/16 04:30 11/05/16 04:30 11/04/16 11/05/16 11/06/16 05:59 05:59 05:59 Intake Total 1000 Balance 1000 - Physical Exam Constitutional: no apparent distress, appears nourished Eyes: PERRL, anicteric sclera Ears, Nose, Mouth, Throat: moist mucous membranes, hearing normal Cardiovascular: regular rate and rhythym, no murmur, rub, or gallop Respiratory: no respiratory distress, no rales or rhonchi Gastrointestinal: No mtz's sign, No guarding, No rebound Genitourinary: no bladder fullness, No ruiz in urethra Skin: warm, normal color Neurologic: AAOx3, sensation intact bilaterally Psychiatric: interacting appropriately, not anxious Lymph, Heme, Immunologic: no cervical LAD ICD10 Worksheet Patient Problems: Problems Problem Status Onset Acute pancreatitis Acute
--- NOTE | 2016-11-05 12:27 | GDS ---
[f rep st] DISCHARGE SUMMARY DISCHARGE DIAGNOSES: 1. Choledocholithiasis. 2. Elevated LFTs normal. PROCEDURES DURING THIS ADMISSION: ERCP with complete extraction of stones. Postoperative cholangio gram demonstrated free bile duct. Her abdominal ultrasound on presentation showed intra and extra h epatic biliary dilation with a dilated common stone in pancreatic duct, partially contracted gallbla dder. The patient is admitted, not initially started on antibiotics given volume resuscitation. She had E RN DELIVERY with extraction of her stone. Her transaminases have improved from 416 to 297 to 194 to 316. H er alkaline phosphatase has actually risen a bit as has her bilirubin but this is consistent with de layed resolution of biliary obstruction. She has anion gap metabolic acidosis consistent with volum e resuscitation. Patient is tolerating orals without a Johnson sign. Afebrile without tachycardia. She is originally from [facility] and she is traveling there in 2 days. She has outpatient followup with Dr. Demetris Rashid for scheduling of a cholecystectomy. I did advise the risk of possible cholecystectomy while in e [facility] and they have planned this trip for years and they are anxious to go, so they are being disc harged with that trip. /[id number]/MODL
[2016-11-05] MEDS: ENOXAPARIN 40 MG/0.4 ML SYR SC SCH (13:03)
== END 2016-11-05 13:26 | disposition home or self-care (01) | DRG 444 ==
LOC: INTOOBSV 12:38 → F3E 13:58 → OBSVTOIN 11-04 18:44
PROVIDERS: ADMIT Internal Medicine; ATTEND Internal Medicine
PROC: 0FC98ZZ Extirpation of Matter from Common Bile Duct, Via Natural or Artificial Opening Endoscopic (ICD-10-PCS; principal; 2016-11-04 16:15)
DX: K00-K95 Diseases of the digestive system (principal); K85.10 Biliary acute pancreatitis without necrosis or infection; K29.80 Duodenitis without bleeding; K26.9 Duodenal ulcer, unspecified as acute or chronic, without hemorrhage or perforation; Z23 Encounter for immunization
CPT/HCPCS: 96374; A9585; C1726; C1769; G0009; G0378; J1170; J1610; J1650; J1956; J2250; J2405; J2704; J3010; Q9961